=== PATIENT | male | born 1980 | race American Indian/Alaskan Native ===

== ENCOUNTER 2017-08-07 19:03 | Emergency (ER) | payer MEDICAID ==
[2017-08-07] MEDS ORDERED: oxyCODONE 5 MG Tab PO ONE ×2 (20:10→22:09)
--- NOTE | 2017-08-07 20:16 | EDM.PDOC ---
ED HPI GENERAL MEDICAL PROBLEM - General Chief Complaint: Neurological Problem Stated Complaint: FACE PAIN Time Seen by Provider: 08/07/17 19:53 Source of Information: Reports: Patient, Old Records, RN Notes Reviewed History Limitations: Reports: No Limitations - History of Present Illness INITIAL COMMENTS - FREE TEXT/NARRATIVE: Here with his fianc Chief complaint Right-sided facial pain History of present illness 36-year-old male, not currently employed, onset of right-sided facial weakness, seen at the end of June in emergency at [facility], diagnosed with Wang's palsy and was prescribed Valtrex and prednisone. Symptoms started with numbness in the right side of his face which resolved after 12 hours and then recurred with numbness facial droop and pain in the right side of the face. He's been followed up at the [facility] clinic, facial drooping has improved although not back to normal. He continues to have pain in the right side of the face is quite unbearable at times and keeps him awake. He's also sore to touch on the right side of the face. No difficulty eating or chewing. His taste initially was altered but this has returned to normal. He continues to have some eye discomfort, doesn't colorrhea night he has to use eyedrops. He hasn't noticed any facial swelling and no fever. At the clinic they have prescribed gabapentin currently taking twice a day and 200 mg of extended-release carbamazepine once daily. No hearing loss, he thinks his hearing may be better. No visual loss. No peripheral symptoms otherwise. No history of diabetes or Lyme's disease Mild elevated blood pressure Right Face Pain Score (Numeric/FACES): 9 - Related Data Allergies Allergy/AdvReac Type Severity Reaction Status Date / Time acetaminophen [From Tylenol] AdvReac Nausea Verified 08/07/17 19:24 amoxicillin AdvReac Nausea Verified 08/07/17 19:24 Home Meds: Home Meds oxyCODONE 5 - 10 mg PO Q4H PRN #50 tablet 02/08/16 [Rx] Gabapentin [Neurontin] 300 mg PO BID 08/07/17 [History] LORazepam [Ativan] 1 mg PO TID PRN #10 tab 08/07/17 [Rx] oxyCODONE 5 - 10 mg PO QID PRN #10 tab 08/07/17 [Rx] Past Medical History Cardiovascular History: Reports: Hypertension Respiratory History: Reports: Sleep Apnea Other Respiratory History: Doesnt use CPAP on a regular basis Musculoskeletal History: Reports: Fracture, Other (See Below) Other Musculoskeletal History: rib Neurological History: Reports: Concussion, Other (See Below) Other Neuro History: bells palsy dx 07.21.17 and treated. Psychiatric History: Reports: Anxiety, Depression Endocrine/Metabolic History: Reports: Other (See Below) Other Endocrine/Metabolic History: pre diabetic Dermatologic History: Reports: Psoriasis - Infectious Disease History Infectious Disease History: Reports: Chicken Pox - Past Surgical History Other HEENT Surgeries/Procedures: bilateral tubes GI Surgical History: Reports: Appendectomy, Cholecystectomy Musculoskeletal Surgical History: Reports: Other (See Below) Social & Family History - Tobacco Use Smoking Status *Q: Former Smoker Years of Tobacco use: 20 Packs/Tins Daily: 0.5 Used Tobacco, but Quit: No Month Tobacco Last Used: 2013 Second Hand Smoke Exposure: No - Caffeine Use Caffeine Use: Reports: Coffee, Energy Drinks, Soda, Tea - Recreational Drug Use Recreational Drug Use: No ED ROS GENERAL - Review of Systems Review Of Systems: See Below Constitutional: Denies: Fever, Chills, Weakness, Night Sweats, Decreased Appetite HEENT: Reports: Other (Right-sided facial pain, I discomfort at night). Denies : Ear Pain, Hearing Loss, Rhinitis, Sinus Problem, Throat Pain Respiratory: Reports: No Symptoms Cardiovascular: Reports: No Symptoms GI/Abdominal: Reports: No Symptoms : Reports: No Symptoms Musculoskeletal: Reports: No Symptoms Skin: Reports: No Symptoms Neurological: Reports: Headache, Other (Right-sided facial pain, disturbed sleep ) Psychiatric: Reports: No Symptoms Hematologic/Lymphatic: Reports: No Symptoms - Physical Exam Exam: See Below Exam Limited By: No Limitations General Appearance: Alert, Mild Distress, Other (Large body habitus, elevated blood pressure, No difficulty speaking or breathing) Eye Exam: Right Eye: Other (Mild deficiency of lid closure on the right), Bilateral Eye: Normal Inspection Ears: Normal External Exam, Normal Canal, Normal TMs Nose: Normal Inspection, Normal Mucosa Throat/Mouth: Normal Inspection, Normal Lips, Normal Oropharynx, Normal Voice Head Exam: Atraumatic Neck: Normal Inspection Respiratory/Chest: No Respiratory Distress, No Accessory Muscle Use Cardiovascular: Regular Rate, Rhythm, Tachycardia (Mild) Neuro Exam (Abbreviated): Alert, Oriented, Normal Gait, Other (Moves all limbs normallyMild right facial droop) Skin Exam: Warm, Dry, Intact, Normal Color, No Rash Course - Vital Signs Last Recorded V/S: Last Vital Signs Temp 37.4 C 08/07/17 19:17 Pulse 104 H 08/07/17 19:17 Resp 16 08/07/17 19:17 BP 151/109 H 08/07/17 19:17 Pulse Ox 97 08/07/17 19:17 - Orders/Labs/Meds Orders: Active Orders 24 hr Category Date Time Status Head w Cont [CT] Stat Exams 08/07/17 20:07 Taken Max Facial Sinus w Cont [CT] Stat Exams 08/07/17 20:07 Taken Iopamidol [Isovue-300 (61%)] Med 08/07/17 20:45 Active 100 ml IV . DIRECTED Ketorolac [Toradol] Med 08/07/17 22:40 Once 30 mg IM ONETIME ONE Sodium Chloride 0.9% [Normal Saline] 80 ml Med 08/07/17 20:45 Active IV ASDIRECTED Sodium Chloride 0.9% [Saline Flush] Med 08/07/17 20:09 Active 10 ml FLUSH ASDIRECTED PRN Saline Lock Insert [OM.PC] Stat Oth 08/07/17 20:09 Ordered Medication Orders Sodium Chloride (Normal Saline) 80 mls @ 3 mls/sec IV ASDIRECTED MAGGI Last Admin: 08/07/17 20:53 Dose: 3 mls/sec Iopamidol (Isovue-300 (61%)) 100 ml IV . DIRECTED MAGGI Last Admin: 08/07/17 20:53 Dose: 100 ml Sodium Chloride (Saline Flush) 10 ml FLUSH ASDIRECTED PRN PRN Reason: Keep Vein Open Last Admin: 08/07/17 20:53 Dose: 10 ml Admin: 08/07/17 20:27 Dose: 10 ml Labs: Laboratory Tests 08/07/17 Range/Units 20:09 Sodium 133 L (140-148) mmol/L Potassium 4.0 (3.6-5.2) mmol/L Chloride 99 L (100-108) mmol/L Carbon Dioxide 24 (21-32) mmol/L Anion Gap 14.0 (5.0-14.0) mmol/L BUN 17 (7-18) mg/dL Creatinine 1.0 (0.8-1.3) mg/dL Est Cr Clr Drug Dosing 105.44 mL/min Estimated GFR (MDRD) > 60 (>60) Glucose 249 H (74-106) mg/dL Calcium 8.5 (8.5-10.1) mg/dL Meds: Medications Generic Name Dose Route Start Last Admin Trade Name Freq PRN Reason Stop Dose Admin Sodium Chloride 80 mls @ 3 mls/sec 08/07/17 20:45 08/07/17 20:53 Normal Saline IV 3 mls/sec ASDIRECTED MAGGI Administration Iopamidol 100 ml 08/07/17 20:45 08/07/17 20:53 Isovue-300 (61%) IV 100 ml . DIRECTED MAGGI Administration Sodium Chloride 10 ml 08/07/17 20:09 08/07/17 20:53 Saline Flush FLUSH 10 ml ASDIRECTED PRN Administration Keep Vein Open Discontinued Medications Generic Name Dose Route Start Last Admin Trade Name Freq PRN Reason Stop Dose Admin Oxycodone HCl 10 mg 08/07/17 20:10 08/07/17 20:26 Oxycodone PO 08/07/17 20:11 10 mg ONETIME ONE Administration Oxycodone HCl 5 mg 08/07/17 22:09 08/07/17 22:39 Oxycodone PO 08/07/17 22:10 5 mg ONETIME ONE Administration - Re-Assessments/Exams Free Text/Narrative Re-Assessment/Exam: 08/07/17 20:17 36-year-old male with recent diagnosis of Wang's palsy right side of the face. He's explained to morphine and is normally seen with Wang's palsy and has been treated so far unsuccessfully with gabapentin and carbamazepine. Differential diagnosis might include other causes of neuropathy including neuroma. Oxycodone 10 mg by mouth for pain CT head and face with contrast 08/07/17 22:17 22.10 some improvement in his pain CT head and face negative for any significant findings except for small cyst in the sinuses. Oxycodone 5 mg by mouth repeated Toradol 30 mg IM Discharge with prescriptions for oxycodone and lorazepam as adjunct Follow-up with clinic and with neurology 08/07/17 22:41 Departure - Departure Time of Disposition: 22:13 Disposition: Home, Self-Care 01 Condition: Good Clinical Impression: Wang's palsy, Atypical facial pain - Discharge Information Prescriptions: LORazepam [Ativan] 1 mg PO TID PRN #10 tab PRN Reason: to help with pain oxyCODONE 5 - 10 mg PO QID PRN #10 tab PRN Reason: Moderate to severe pain Instructions: Wang Palsy, Trigeminal Neuralgia Referrals: PCP,None [Primary Care Provider] - Forms: ED Department Discharge Additional Instructions: Wang's palsy usually causes only mild discomfort. It is not typical to have such severe facial pain. Perhaps there is another inflamed nerve such as trigeminal neuralgia CT of the facial bones sinuses and head do not show any significant abnormalities to explain your pain You have been prescribed a small number of oxycodone tablets for pain and lorazepam to help you relax and to help deal with the pain. Follow-up with your clinic and neurology is strongly recommended for further treatment and investigation. You may need an MRI of the facial area to help with the diagnosis of the pain. - My Orders Last 24 Hours: My Active Orders 08/07/17 20:07 Head w Cont [CT] Stat Max Facial Sinus w Cont [CT] Stat 08/07/17 20:09 Sodium Chloride 0.9% [Saline Flush] 10 ml FLUSH ASDIRECTED PRN Saline Lock Insert [OM.PC] Stat 08/07/17 20:45 Iopamidol [Isovue-300 (61%)] 100 ml IV . DIRECTED Sodium Chloride 0.9% [Normal Saline] 80 ml IV ASDIRECTED 08/07/17 22:40 Ketorolac [Toradol] 30 mg IM ONETIME ONE - Assessment/Plan Last 24 Hours: My Active Orders 08/07/17 20:07 Head w Cont [CT] Stat Max Facial Sinus w Cont [CT] Stat 08/07/17 20:09 Sodium Chloride 0.9% [Saline Flush] 10 ml FLUSH ASDIRECTED PRN Saline Lock Insert [OM.PC] Stat 08/07/17 20:45 Iopamidol [Isovue-300 (61%)] 100 ml IV . DIRECTED Sodium Chloride 0.9% [Normal Saline] 80 ml IV ASDIRECTED 08/07/17 22:40 Ketorolac [Toradol] 30 mg IM ONETIME ONE
[2017-08-07] MEDS: Sodium Chloride 0.9% 10 ML Syringe FLUSH PRN ×2 (20:27→20:53)
[2017-08-07] MEDS ORDERED: Iopamidol 612 MG/ML 100 ML Bottle IV SCH (20:45)
[2017-08-07] MEDS ORDERED: Sodium Chloride 0.9% 80 ML IV SCH (20:45)
[2017-08-07] MEDS ORDERED: Ketorolac 30 MG/ML SDV IM ONE (22:40)
[2017-08-07 23:17] VITALS: BP 133/82
== END 2017-08-07 23:24 | disposition home or self-care (01) ==
LOC: JP.ED 19:03
DX: G51.0 Bell's palsy (principal); I10 Essential (primary) hypertension; G47.30 Sleep apnea, unspecified; F32.9 Major depressive disorder, single episode, unspecified; Z87.891 Personal history of nicotine dependence; Z88.6 Allergy status to analgesic agent; Z88.1 Allergy status to other antibiotic agents
CPT/HCPCS: 36415; 70460; 70487; 80048; 96372; 99284; A9270; J1885; J7030; J7050; Q9967

== ENCOUNTER 2018-05-22 00:27 | Emergency (ER) | payer SELFPAY ==
[2018-05-22 00:52] VITALS: BP 148/87
--- NOTE | 2018-05-22 01:10 | EDM.PDOC ---
ED HPI GENERAL MEDICAL PROBLEM - General Chief Complaint: Eye Problems Stated Complaint: METAL IS LEFT EYE Time Seen by Provider: 05/22/18 00:50 Source of Information: Reports: Patient, Old Records, RN History Limitations: Reports: No Limitations - History of Present Illness INITIAL COMMENTS - FREE TEXT/NARRATIVE: 37 yo male here with L eye irritation. No blurred vision or light sensitivity. Could not see a FB himself. Feels like there is something in the LLQ of his L eye. Tetanus is UTD. Onset Date: 05/21/18 Duration: Hour(s):, Constant Location: Reports: Face (L eye) Quality: Reports: Other (irritation) Severity: Mild Improves with: Reports: None Worsens with: Reports: None Context: Reports: Other (uncertain) Associated Symptoms: Reports: No Other Symptoms Treatments MDS NURSE: Reports: Other (see below) (none) - Related Data Allergies Allergy/AdvReac Type Severity Reaction Status Date / Time acetaminophen [From Tylenol] AdvReac Nausea Verified 08/07/17 19:24 amoxicillin AdvReac Nausea Verified 08/07/17 19:24 Past Medical History Cardiovascular History: Reports: Hypertension Respiratory History: Reports: Sleep Apnea Other Respiratory History: Doesnt use CPAP on a regular basis Musculoskeletal History: Reports: Fracture, Other (See Below) Other Musculoskeletal History: rib Neurological History: Reports: Concussion, Other (See Below) Other Neuro History: bells palsy dx 07.21.17 and treated. Psychiatric History: Reports: Anxiety, Depression Endocrine/Metabolic History: Reports: Other (See Below) Other Endocrine/Metabolic History: pre diabetic Dermatologic History: Reports: Psoriasis - Infectious Disease History Infectious Disease History: Reports: Chicken Pox - Past Surgical History Other HEENT Surgeries/Procedures: bilateral tubes GI Surgical History: Reports: Appendectomy, Cholecystectomy Musculoskeletal Surgical History: Reports: Other (See Below) Social & Family History - Caffeine Use Caffeine Use: Reports: Coffee, Energy Drinks, Soda - Recreational Drug Use Recreational Drug Use: No ED ROS GENERAL - Review of Systems Review Of Systems: See Below Constitutional: Reports: No Symptoms HEENT: Reports: Eye Pain (L eye). Denies: Eye Discharge, Vision Change (slight watering only) Respiratory: Reports: No Symptoms Skin: Reports: No Symptoms Neurological: Reports: No Symptoms ED EXAM GENERAL W FULL EYE - Physical Exam Exam: See Below Exam Limited By: No Limitations General Appearance: Alert, WD/WN, No Apparent Distress Eye Exam: Bilateral Eye: EOMI, Normal Inspection, PERRL Eyelids: Bilateral: Normal Appearance Conjunctiva & Sclera: Right: Normal Appearance, Left: Injected (mild conjunctival injection) Cornea Exam: Bilateral: Normal Appearance Pupils: Normal Accommodation Pupillary Size: Bilateral: 3 mm Pupillary Reaction: Bilateral: Brisk Ears: Normal External Exam, Normal Canal, Hearing Grossly Normal Nose: Normal Inspection, Normal Mucosa, No Blood Throat/Mouth: Normal Voice, No Airway Compromise Head: Atraumatic, Normocephalic Neck: Normal Inspection Course - Vital Signs Text/Narrative:: Fluorescein staining of L eye reveals no corneal injury. No FB noted on inspection. No photophobia. Mild watering. Last Recorded V/S: Last Vital Signs Temp 37.3 C 05/22/18 00:52 Pulse 83 05/22/18 00:52 Resp 16 05/22/18 00:52 BP 148/87 H 05/22/18 00:52 Pulse Ox 98 05/22/18 00:52 Departure - Departure Time of Disposition: 01:11 Disposition: Home, Self-Care 01 Condition: Good Clinical Impression: Irritation of left eye - Discharge Information *PRESCRIPTION DRUG MONITORING PROGRAM REVIEWED*: Not Applicable *COPY OF PRESCRIPTION DRUG MONITORING REPORT IN PATIENT TERI: Not Applicable Referrals: PCP,None [Primary Care Provider] - Additional Instructions: Avoid rubbing the L eye. Take acetaminophen or ibuprofen as needed for pain control. Use the Rx ointment as directed. Recheck if not much better in 24 hrs or less.
== END 2018-05-22 01:20 | disposition home or self-care (01) ==
LOC: JP.ED 00:27
DX: H57.8 Other specified disorders of eye and adnexa (principal); I10 Essential (primary) hypertension; Z88.1 Allergy status to other antibiotic agents
CPT/HCPCS: 99283